=== PATIENT | female | born 1950 | race Caucasian/White ===

== ENCOUNTER 2022-11-07 19:00 | Outpatient (CLI) | payer MEDICARE | END 2022-11-07 19:01 | disposition home or self-care (01) | LOC: SLEEPLAB 19:00 | PROVIDERS: ATTEND Family Medicine | DX: G47.33 Obstructive sleep apnea (adult) (pediatric) (principal); G25.89 Other specified extrapyramidal and movement disorders | CPT/HCPCS: 95811 ==

== ENCOUNTER 2023-08-05 07:31 | Outpatient (CLI) | payer MEDICARE ==
[2023-08-05 09:06] LABS: Hematocrit 39.8 % (34.9-44.5); Hemoglobin 13.4 g/dL (12.0-15.5); Mean Corpuscular HGB CONC 33.7 g/dL (32.0-36.0); Mean Corpuscular Hemoglobin 28.9 pg (27.0-33.0); Mean Corpuscular Volume 85.8 fl (81.6-98.3); Mean Platelet Volume 9.3 fl (7.4-10.4); Platelet Count 395 10x3/uL (150-450); RBC Distribution Width 14.3 % (11.5-14.5); Red Blood Cell (RBC) Count 4.64 10x6/uL (3.90-5.03); White Blood Cell (WBC) Count 9.2 10x3/uL (3.5-10.5)
[2023-08-05 09:14] LABS: INR-International Normal Ratio 0.9; PTT 27.1 sec (22.0-33.0)
[2023-08-05 09:23] LABS: Anion Gap 15 mmol/L (10-20); BUN (Urea Nitrogen) 8 mg/dL (9.8-20.1); Calc. Creatinine Clearance 0 mL/min (70-130); Calcium 9.2 mg/dL (7.8-10.44); Carbon Dioxide 21 mmol/L (23-31); Chloride 105 mmol/L (98-107); Estimated GFR 75; Glucose 257 mg/dL (83-110); Potassium 4.3 mmol/L (3.5-5.1); Sodium 137 mmol/L (136-145)
== END 2023-08-05 07:32 | disposition home or self-care (01) ==
LOC: LABBT 07:31
PROVIDERS: ATTEND Neurological Surgery
DX: Z01.818 Encounter for other preprocedural examination (principal); M54.16 Radiculopathy, lumbar region
CPT/HCPCS: 80048; 85027; 85610; 85730; 93005; 93010

== ENCOUNTER 2023-08-12 06:09 | Day surgery (SDC) | payer MEDICARE ==
[2023-08-05 08:28] VITALS: BMI 30.7
[2023-08-12] MEDS ORDERED: Ondansetron PF 4 MG/2 ML Vial ONE (06:50)
[2023-08-12] MEDS ORDERED: PROPOFOL 40 ML ONE (06:50)
[2023-08-12] MEDS ORDERED: Lidocaine 1% PF 5 ML VIAL ONE (06:50)
[2023-08-12] MEDS ORDERED: Rocuronium Bromide 10 MG/ML (10ML VIAL) ONE (06:50)
[2023-08-12] MEDS ORDERED: Dexamethasone 4 mg/ml Vial ONE (06:50)
[2023-08-12] MEDS ORDERED: fentaNYL PF 100 MCG/2 ML SYRINGE ONE (06:50)
[2023-08-12] MEDS ORDERED: SUGAMMADEX SODIUM 200 MG/2 ML VIAL ONE (06:55)
[2023-08-12] MEDS ORDERED: Lidocaine 2% PF 5 ML VIAL ONE (06:57)
[2023-08-12] MEDS ORDERED: EPINEPHrine 1 MG/ML VIAL ONE (07:22)
[2023-08-12] MEDS ORDERED: Thrombin 5000 UNITS/5 ML VIAL ONE (07:22)
[2023-08-12] MEDS ORDERED: Sodium Chloride 0.9% 100 ML ONE ×2 (07:27→10:56)
[2023-08-12] MEDS ORDERED: CEFAZOLIN 2 GM VIAL ONE ×2 (07:27→10:56)
[2023-08-12] MEDS ORDERED: Bupivacaine PF 0.5% 30 ML VIAL ONE (07:27)
[2023-08-12] MEDS ORDERED: Dexmedetomidine 200 MCG/2 ML VIAL ONE (08:01)
[2023-08-12] MEDS ORDERED: PHENYLEPHRINE-NS 100 MCG/ML 10 ML SYRINGE ONE (08:09)
[2023-08-12] MEDS ORDERED: ePHEDrine Sulfate 50 MG/10 ML VIAL ONE (08:22)
[2023-08-12] MEDS ORDERED: fentaNYL 50 mcg/mL 1 mL Vial ONE ×2 (09:14→09:24)
[2023-08-12] MEDS ORDERED: HYDROcodone/Acetaminophen 5/325 mg Tablet ONE (10:53)
== END 2023-08-12 12:00 | disposition home or self-care (01) ==
LOC: SDC 06:09
PROVIDERS: ATTEND Neurological Surgery
PROC: 01NB0ZZ Release Lumbar Nerve, Open Approach (ICD-10-PCS; principal; 2023-08-12)
DX: M48.062 Spinal stenosis, lumbar region with neurogenic claudication (principal); G89.29 Other chronic pain; E11.9 Type 2 diabetes mellitus without complications; I10 Essential (primary) hypertension; Z90.710 Acquired absence of both cervix and uterus; Z90.89 Acquired absence of other organs; Z90.49 Acquired absence of other specified parts of digestive tract; Z79.4 Long term (current) use of insulin; Z79.899 Other long term (current) drug therapy; Z79.84 Long term (current) use of oral hypoglycemic drugs; Z96.653 Presence of artificial knee joint, bilateral; Z98.41 Cataract extraction status, right eye; Z98.42 Cataract extraction status, left eye
CPT/HCPCS: 63047; 82962; J0171; J3010; 36416; J1100; J2001; J2405; J2704; J3490; S0020